=== PATIENT | female | born 1995 | race Caucasian/White ===

== ENCOUNTER 2017-02-22 23:20 | Emergency (ER) | payer SELFPAY ==
[~2017-02-22] VITALS: Ht 149.9 cm; Wt 38.2 kg
[2017-02-22 23:28] VITALS: BP 100/66
--- NOTE | 2017-02-22 23:35 | NUR ---
AMBULATED TO ER BED 4
--- NOTE | 2017-02-22 23:40 | NUR ---
Patient being evaluated by physician at bedside.
[2017-02-22] MEDS ORDERED: IBUPROFEN 600 MG TAB PO ONE (23:45)
[2017-02-22] MEDS ORDERED: ONDANSETRON 4 MG ODT PO ONE (23:45)
--- NOTE | 2017-02-23 00:39 | NUR ---
22/ F PRESENTS TO ER C/O BL KNEE PAIN, AND HEAD PAIN S/P FALL. NO PMH, NKA. PT STATES SHE WAS WALKING HER DOG AROUND 7PM WHEN SHE FELL ONTO HER KNEES AND HIT HER HEAD, PT DENIES LOC. PT RATES PAIN AT 8/10, SHARP, NON RADIATING. PT HAD 2 EPISODES OF VOMITING, FEEL NAUSEOUS, PT STATES SHE TOOK TYLENOL AT HOME AFTER VOMITING. PT IN BED, ER MD NOTIFIED OF PT STATUS.
[2017-02-23 01:06] VITALS: BP 99/60
--- NOTE | 2017-02-23 01:06 | NUR ---
Patient discharged with v/s stable. Written and verbal after care instructions given and explained. Patient alert, oriented and verbalized understanding of instructions. Ambulatory with steady gait. All questions addressed prior to discharge. ID band removed. Patient advised to follow up with PMD. Rx of motrin 600mg given. Patient educated on indication of medication including possible reaction and side effects. Opportunity to ask questions provided and answered.
== END 2017-02-23 01:06 | disposition home or self-care (01) ==
LOC: MED 23:20
DX: S83.92XA Sprain of unspecified site of left knee, initial encounter (principal); S83.91XA Sprain of unspecified site of right knee, initial encounter; W18.39XA Other fall on same level, initial encounter; Z91.81 History of falling; Y93.89 Activity, other specified; Y92.89 Other specified places as the place of occurrence of the external cause; Y99.8 Other external cause status
CPT/HCPCS: 70450; 73560; 99284; Q0092; S0119